=== PATIENT | male | born 1955 | race African-American/Black ===

== ENCOUNTER 2018-01-07 10:04 | Emergency (ER) | payer OTHER ==
[~2018-01-07] VITALS: Ht 190.5 cm; Wt 108.4 kg
[2018-01-07] MEDS ORDERED: MELO7.5T29 PO (10:39)
[2018-01-07] MEDS ORDERED: D-ME118S2 PO (10:39)
[2018-01-07] MEDS ORDERED: DOXY100T PO (10:39)
--- NOTE | 2018-01-07 10:39 | PHYS DOC ---
Past History Past Medical History: Diabetes, Hypertension Past Surgical History: Other Alcohol Use: None Drug Use: None Adult General Chief Complaint Chief Complaint: HEADACHE HPI HPI Patient is a 62 year old male who presents with sinus pressure and nasal congestion. The symptoms been present for the past 5 days. Getting worse over time. Get some relief with [id number] [place] cold medicine however notice that his blood pressure was elevated with this medication. Patient denies any headache, chest pain, or difficulty breathing. Notes that he is having some right ear discomfort today and hearing his heart beat in his ear today as well. Nothing seems to make the symptoms worse. Reports that the discomfort is mild to moderate in intensity.[] Review of Systems Review of Systems Constitutional: Denies fever or chills [] Eyes: Denies change in visual acuity, redness, or eye pain [] HENT: See history of present illness[] Respiratory: Denies cough or shortness of breath [] Cardiovascular: No chest pain or palpitations[] GI: Denies abdominal pain, nausea, vomiting, bloody stools or diarrhea [] : Denies dysuria or hematuria [] Musculoskeletal: Denies back pain or joint pain [] Integument: Denies rash or skin lesions [] Neurologic: Denies headache, focal weakness or sensory changes [] Endocrine: Denies polyuria or polydipsia [] All other systems were reviewed and found to be within normal limits, except as documented in this note. Allergies Allergies Allergies Coded Allergies Type Severity Reaction Last Updated Verified No Known Drug Allergies 01/07/18 No Physical Exam Physical Exam Constitutional: Well developed, well nourished, no acute distress, non-toxic appearance. [] HENT: Normocephalic, atraumatic, bilateral external ears normal, oropharynx moist, no oral exudates, nose clear rhinorrhea. Patient has right frontal sinus tenderness to percussion. [] Eyes: PERRLA, EOMI, conjunctiva normal, no discharge. [] Neck: Normal range of motion, no tenderness, supple, no stridor. [] Cardiovascular:Heart rate regular rhythm, no murmur [] Lungs & Thorax: Bilateral breath sounds clear to auscultation [] Abdomen: Bowel sounds normal, soft, no tenderness, no masses, no pulsatile masses. [] Skin: Warm, dry, no erythema, no rash. [] Back: No tenderness, no CVA tenderness. [] Extremities: No tenderness, no cyanosis, no clubbing, ROM intact, no edema. [] Neurologic: Alert and oriented X 3, normal motor function, normal sensory function, no focal deficits noted. [] Psychologic: Affect normal, judgement normal, mood normal. [] Current Patient Data Vital Signs Vital Signs Date Time Temp Pulse Resp B/P (MAP) Pulse Ox O2 Delivery O2 Flow Rate FiO2 01/07/18 10:10 97.3 74 12 96 Room Air EKG EKG [] Radiology/Procedures Radiology/Procedures [] Course & Med Decision Making Course & Med Decision Making Pertinent Labs and Imaging studies reviewed. (See chart for details) Medical decision making: Patient's blood pressure is noted to be elevated, this is most likely as a result of the current cough/cold medicine he is taking. There are no red flags indicating a need for further workup of his elevated blood pressure at this time. No evidence of meningitis or encephalitis. No evidence of mastoiditis. Patient is nontoxic. Will treat this discomfort with symptomatic relief therapy along with antibiotics.[] Dragon Disclaimer Dragon Disclaimer This electronic medical record was generated, in whole or in part, using a voice recognition dictation system. Departure Departure: Impression: Primary Impression: Upper respiratory infection Additional Impression: Sinusitis Disposition: 01 HOME, SELF-CARE Condition: GOOD Referrals: PCP[facility] (PCP) Patient Instructions: Sinusitis, Upper Respiratory Infection, Adult Additional Instructions: Drink plenty of fluids. Follow-up with your regular doctor in 2 days. Return to the ER if worsening pain, fever more than 101, or any other concerns. Scripts Doxycycline Hyclate (DOXYCYCLINE HYCLATE) 100 Mg Tablet 1 TAB PO BID for SINUSITIS, #20 TAB Prov: KALIN BLAKELY DO 01/07/18 Meloxicam (MELOXICAM) 7.5 Mg Tablet 7.5 MG PO DAILY for PAIN, #20 TAB Prov: KALIN BLAKELY DO 01/07/18 D-Methorphan Hb/Prometh Hcl (PROMETHAZINE-DM SYRUP) 118 Ml Syrup 5 ML PO PRN Q4HRS for CONGESTION, #120 ML Prov: KALIN BLAKELY DO 01/07/18 Problem Qualifiers Primary Impression: Upper respiratory infection URI type: unspecified URI Qualified Codes: J06.9 - Acute upper respiratory infection, unspecified Additional Impression: Sinusitis Sinusitis location: frontal Chronicity: acute Recurrence: non-recurrent Qualified Codes: J01.10 - Acute frontal sinusitis, unspecified KALIN BLAKELY DO Jan 07, 2018 10:39
[2018-01-07 10:44] VITALS: BP 158/105
== END 2018-01-07 10:45 | disposition home or self-care (01) ==
LOC: ER 10:04
DX: J06.9 Acute upper respiratory infection, unspecified (principal); J01.10 Acute frontal sinusitis, unspecified; E11.9 Type 2 diabetes mellitus without complications; I10 Essential (primary) hypertension
CPT/HCPCS: 99283